=== PATIENT | female | born 1965 | race Asian ===

== ENCOUNTER 2020-06-10 07:24 | Emergency (ER) | payer BC ==
[~2020-06-10] VITALS: Ht 162.6 cm; Wt 77.0 kg
[2020-06-10] MEDS ORDERED: KETOROLAC 60MG/2ML VIAL IM ONE (07:45)
[2020-06-10] MEDS ORDERED: ACETAMINOPHEN 325MG TABLET PO ONE (07:45)
[2020-06-10 09:47] VITALS: BP 137/67
== END 2020-06-10 09:57 | disposition home or self-care (01) ==
LOC: ER 07:24
DX: M79.18 Myalgia, other site (principal); E11.9 Type 2 diabetes mellitus without complications; V47.5XXA Car driver injured in collision with fixed or stationary object in traffic accident, initial encounter; Y93.89 Activity, other specified; Y92.89 Other specified places as the place of occurrence of the external cause; Y99.9 Unspecified external cause status
CPT/HCPCS: 71045; 72040; 73030; 93005; 96372; 99284; J1885